=== PATIENT | male | born 1955 | race Caucasian/White ===

== ENCOUNTER 2017-01-25 18:45 | Inpatient (IN) | payer OTHER ==
[~2017-01-25] VITALS: Ht 177.8 cm; Wt 91.9 kg
[~2017-01-25 18:45] MED LIST: ASPI325T39 PO; CIPR-255 PO; GLC500 PO; METO-217 PO; OXYC1TAB3 PO; PRLSR20 PO; SUMA50TA17 PO
[2017-01-25 20:45] LABS: BASO % 0.2 %; BASO ABS # 0.03 K/uL (0-0.2); COMPLETE YES; EOS % 2.3 %; HEMATOCRIT 46.4 % (42-52); IG% 0.3 %; LYMPH % 22.6 %; LYMPH ABS # 3.48 K/uL (1.2-3.4); MEAN CELL VOLUME 86.7 fL (80-100); MEAN CORPUSCULAR HEMOGLOBIN 30.8 pg (25-34); MEAN CORPUSCULAR HGB CONC 35.6 g/dl (32-36); MEAN PLATELET VOLUME 9.7 fL (7.4-10.4); MONO % 8.6 %; PLATELET COUNT 254 K/uL (130-400); RED BLOOD COUNT 5.35 M/uL (4.7-6.1); WHITE BLOOD COUNT 15.39 K/uL (4.8-10.8)
[2017-01-25] MEDS ORDERED: MoRPHine SULFATE 2 MG/ML CARP IV PRN ×2 (20:45→22:15)
[2017-01-25] MEDS ORDERED: NITROGLYCERIN 0.4 MG SL PER TAB CHARGE SL PRN ×2 (20:45→22:00)
--- NOTE | 2017-01-25 20:49 | DIAGNOSTIC IMAGING REPORT ---
CHEST ONE VIEW PORTABLE CLINICAL HISTORY: Atypical chest pain. Shortness of breath. COMPARISON STUDY: 03/08/2015 FINDINGS: The cardiac and mediastinal contours remain stable. There are old bilateral rib deformities. There are increased left perihilar markings which are felt to be related to prior rib trauma. There is no lobar consolidation. There is no failure. There are no pleural effusions.[ IMPRESSION: Old posttraumatic changes. No acute findings. Electronically signed by: Jhon Ortiz M.D. 01/25/2017 8:47 PM Dictated Date/Time: 01/25/2017 8:46 PM
--- NOTE | 2017-01-25 20:52 | EMERGENCY ROOM VISIT NOTE ---
History Report prepared by José Antonio: Eric Trujillo Under the Supervision of: Dr. José Gonzalez D.O. First contact with patient: 20:20 Chief Complaint: CHEST PAIN Stated Complaint: CHEST PAIN, SOB Nursing Triage Summary: Chest pain since 2 pm. Took 2 full strength asprin prior to arrival. History of Present Illness The patient is a 61 year old male who presents to the Emergency Room with complaints of constant chest pains that began today at 1400 while sitting at work, 7 hours prior to arrival. The patient states that the pain was initially localized in his central chest, but is now radiating into his left chest and bilateral shoulders. The patient was not exerting himself when the pain onset. He denies any history of chest pain, and no history of abnormal ECGs. He is also currently complaining of a "pressure" headache. He does note a history of high cholesterol, and notes that he recently has began taking multiple herbal supplements in place of his cholesterol medications. 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 A total of 10 systems reviewed and were otherwise negative. Past Medical & Surgical Medical Problems: (1) Appendicitis (2) Arthritis (3) Benign hypertension (4) Bronchitis (5) Chest pain radiating to arm (6) Chest pain radiating to jaw (7) DEPRESSIVE DISORDER NEC (8) Diabetes mellitus (9) ESOPHAGEAL REFLUX (10) HYPERLIPIDEMIA NEC/NOS (11) HYPERTENSION NOS Surgical Problems: (1) History of appendectomy Family History Diabetes mellitus FH: heart disease Hypertension Social History Smoking Status: Never Smoker Alcohol Use: occasionally Drug Use: none Marital Status: Housing Status: lives with significant other Occupation Status: employed Current/Historical Medications Scheduled Arginine (L-Arginine), 1,000 MG PO TID Carli (Zingiber Officinalis) (Carli Root), 500 MG PO TID Eusebia Root (Eusebia), 500 MG PO TID Metoprolol Succinate (Toprol Xl), 25 MG PO DAILY Misc Natural Products (Ginkgo Biloba), 1 TAB PO TID Omeprazole (Prilosec), 20 MG PO DAILY Scheduled PRN Aspirin (Aspirin Ec), 325-650 MG PO PRN PRN for Headache or Pain Sumatriptan Succinate (Sumatriptan Succinate), 50 MG PO for Migraine Allergies Coded Allergies: Rosuvastatin (Verified Allergy, Unknown, UNKNOWN, 05/11/14) MIKE Inhibitors (Verified Adverse Reaction, Mild, HEADACHES, 05/08/13) Physical Exam Vital Signs Date Time Temp Pulse Resp B/P Pulse Ox O2 Delivery O2 Flow Rate FiO2 01/25/17 21:35 90 18 121/74 95 Room Air 01/25/17 21:28 92 18 131/90 96 Room Air 01/25/17 21:20 90 18 117/78 96 Room Air 01/25/17 21:00 87 18 137/85 96 Room Air 01/25/17 20:30 86 01/25/17 20:25 96 Room Air 01/25/17 20:24 86 18 177/92 95 Room Air 01/25/17 18:52 Room Air 01/25/17 18:51 36.8 92 16 135/88 96 Room Air Physical Exam GENERAL: Patient is well appearing and in no acute distress. HEENT: No acute trauma, normocephalic atraumatic, mucous membranes moist, no nasal congestion, no scleral icterus. NECK: No stridor, no adenopathy, no meningismus, trachea is midline. LUNGS: No dyspnea. Clear to auscultation and equal bilaterally. No wheeze, no rhonchi. CHEST: Chest pain not reproducible with direct palpation. HEART: Regular rate and rhythm. No murmurs, rubs, gallops appreciated. ABDOMEN: Soft, nontender, bowel sounds positive, no masses appreciated, no peritonitis. BACK: No midline tenderness, no CVA tenderness EXTREMITIES: Normal motion all extremities, no cyanosis, no edema. NEUROLOGIC: Alert and oriented, no acute motor or sensory deficits, no focal weakness, cranial nerves grossly intact. SKIN: No rash, no jaundice, no diaphoresis. Medical Decision & Procedures ER Provider Diagnostic Interpretation: Radiology results as stated below per my review and radiologist interpretation: CHEST ONE VIEW PORTABLE CLINICAL HISTORY: Atypical chest pain. Shortness of breath. COMPARISON STUDY: 03/08/2015 FINDINGS: The cardiac and mediastinal contours remain stable. There are old bilateral rib deformities. There are increased left perihilar markings which are felt to be related to prior rib trauma. There is no lobar consolidation. There is no failure. There are no pleural effusions.[ IMPRESSION: Old posttraumatic changes. No acute findings. Electronically signed by: Jhon Ortiz M.D. 01/25/2017 8:47 PM Dictated Date/Time: 01/25/2017 8:46 PM Laboratory Results 01/25/17 20:30 Red Blood Count 5.35, Mean Corpuscular Volume 86.7, Mean Corpuscular Hemoglobin 30.8, Mean Corpuscular Hemoglobin Concent 35.6, Mean Platelet Volume 9.7, Neutrophils (%) (Auto) 66.0, Lymphocytes (%) (Auto) 22.6, Monocytes (%) (Auto) 8.6, Eosinophils (%) (Auto) 2.3, Basophils (%) (Auto) 0.2, Neutrophils # (Auto) 10.14, Lymphocytes # (Auto) 3.48, Monocytes # (Auto) 1.33, Eosinophils # (Auto) 0.36, Basophils # (Auto) 0.03 01/25/17 20:30 Test 01/25/17 20:30 01/25/17 21:33 White Blood Count 15.39 K/uL (4.8-10.8) Red Blood Count 5.35 M/uL (4.7-6.1) Hemoglobin 16.5 g/dL (14.0-18.0) Hematocrit 46.4 % (42-52) Mean Corpuscular Volume 86.7 fL (80-100) Mean Corpuscular Hemoglobin 30.8 pg (25-34) Mean Corpuscular Hemoglobin Concent 35.6 g/dl (32-36) Platelet Count 254 K/uL (130-400) Mean Platelet Volume 9.7 fL (7.4-10.4) Neutrophils (%) (Auto) 66.0 % Lymphocytes (%) (Auto) 22.6 % Monocytes (%) (Auto) 8.6 % Eosinophils (%) (Auto) 2.3 % Basophils (%) (Auto) 0.2 % Neutrophils # (Auto) 10.14 K/uL (1.4-6.5) Lymphocytes # (Auto) 3.48 K/uL (1.2-3.4) Monocytes # (Auto) 1.33 K/uL (0.11-0.59) Eosinophils # (Auto) 0.36 K/uL (0-0.5) Basophils # (Auto) 0.03 K/uL (0-0.2) RDW Standard Deviation 41.3 fL (36.4-46.3) RDW Coefficient of Variation 13.0 % (11.5-14.5) Immature Granulocyte % (Auto) 0.3 % Immature Granulocyte # (Auto) 0.05 K/uL (0.00-0.02) Anion Gap 10.0 mmol/L (3-11) Est Creatinine Clear Calc Drug Dose 82.4 ml/min Estimated GFR () 84.7 Estimated GFR (Non- 73.1 BUN/Creatinine Ratio 17.2 (10-20) Calcium Level 8.8 mg/dl (8.5-10.1) Total Bilirubin 0.5 mg/dl (0.2-1) Direct Bilirubin mg/dl (0-0.2) Aspartate Amino Transf (AST/SGOT) U/L (15-37) Alanine Aminotransferase (ALT/SGPT) 35 U/L (12-78) Alkaline Phosphatase 84 U/L (45-117) Total Protein 7.5 gm/dl (6.4-8.2) Albumin 3.6 gm/dl (3.4-5.0) Lipase 114 U/L (73-393) Thyroid Stimulating Hormone (TSH) 3.280 uIu/ml (0.300-4.500) D-Dimer 410 ug/L FEU (0-500) Laboratory results as reviewed by me. Medications Administered Medications (Trade) Dose Ordered Sig/Jeronimo Route Start Time Stop Time Status Last Admin Dose Admin Nitroglycerin (Nitrostat Tab) 0.4 mg PRN PRN SL 01/25/17 20:45 02/24/17 20:44 01/25/17 21:18 0.4 MG ECG Indication: chest pain Rate (beats per minute): 89 Rhythm: normal sinus Findings: nonspecific-ST abn, RBBB Comparison ECG Date: 03/08/2015 Change: RBBB is new from previous ED Course 2024: The patient was evaluated in room C2. A complete history and physical exam was performed. 2044: Ordered Nitroglycerin 0.4 mg SL, Morphine Sulfate 2 mg IV. 2134: I discussed the case with [place]. Rodrigues [place] [facility] [place] , he will evaluate the patient for further treatment. Medical Decision Differential diagnosis: Etiologies such as cardiac ischemia, aortic dissection, pulmonary embolism, pneumonia, pneumothorax, musculoskeletal, infections, pericarditis, myocarditis , esophageal rupture, gastrointestinal, as well as others were entertained. Patient is a 61-year-old male with a significant past medical history for hypertension, hyperglycemia for which she was placed on metformin. He states he was not diagnosed with diabetes, however he does not routinely taking the metformin. At 2:00 this afternoon was sitting at work he noticed he was having chest pain that are atypical for him, this concerned him for possible heart attack as well as radiation to the left side of his neck and down his left arm. He has a new EKG change and a right bundle branch block. His first set of cardiac enzymes are negative, his chest pain was improved with one sublingual much glycerin. I discussed his case with the hospitalist for further evaluation and management of possible N STEMI and acute coronary syndrome. He' ll be admitted to the hospital for further evaluation and management. Consults Time Called: [phone] Consulting Physician: Dr. Lilia BOLTON Hospitalist Returned Call: [phone] I discussed the case with Dr. Lilia BOLTON Hospitalsushil at this time, he will evaluate the patient for further treatment. Impression Primary Impression: Acute electrocardiogram changes Additional Impression: Atypical chest pain Scribe Attestation The scribe's documentation has been prepared under my direction and personally reviewed by me in its entirety. I confirm that the note above accurately reflects all work, treatment, procedures, and medical decision making performed by me. Departure Information Dispostion Being Evaluated By Hospitalist Referrals Margo Jefferson MD (PCP) Patient Instructions My [facility] Problem Qualifiers
[2017-01-25] MEDS ORDERED: MACA500C2 PO (21:08)
[2017-01-25] MEDS ORDERED: ARGI1TAB PO (21:08)
[2017-01-25] MEDS ORDERED: GING500C2 PO (21:08)
[2017-01-25] MEDS ORDERED: MISCTAB26 PO (21:08)
[2017-01-25 21:26] LABS: ALKALINE PHOSPHATASE 84 U/L (45-117); ALT/SGPT 35 U/L (12-78); BLOOD UREA NITROGEN 19 mg/dl (7-18); BUN/CREATININE RATIO 17.2 (10-20); CALCIUM 8.8 mg/dl (8.5-10.1); CARBON DIOXIDE 23 mmol/L (21-32); CHLORIDE 106 mmol/L (98-107); GLUCOSE 102 mg/dl (70-99); SODIUM 139 mmol/L (136-145)
[2017-01-25] MEDS ORDERED: ZOLPIDEM TARTRATE 5 MG TAB PO PRN (22:00)
[2017-01-25] MEDS ORDERED: MoRPHine SULFATE 4 MG/ML 1 ML CARP\\VIAL IV PRN (22:15)
[2017-01-25] MEDS ORDERED: SUMATRIPTAN SUCCINATE 50 MG TAB PO PRN (22:15)
[2017-01-25] MEDS ORDERED: ONDANSETRON INJ 2 MG/ML 2 ML VIAL IV PRN (22:15)
[2017-01-25] MEDS ORDERED: METOPROLOL SUCC 50MG EXT REL TAB PO STA (22:33)
[2017-01-25 23:59] VITALS: BP 147/89; PULSE 85; TEMP 36.3; O2SAT 96; Ht 177.8 cm; Wt 91.9 kg
[2017-01-26] MEDS: ACETAMINOPHEN 325 MG TAB PO PRN ×2 (00:52→08:22)
[2017-01-26] MEDS ORDERED: NSS + 20MEQ KCL 1000ML 1,000 ML IV SCH (01:00)
[2017-01-26 03:58] VITALS: BP 110/72; PULSE 84; TEMP 36.4; O2SAT 95
[2017-01-26 04:00] VITALS: O2SAT 95
[2017-01-26 04:09] LABS: LYME DISEASE AB IGG NEG (NEG); LYME DISEASE AB IGM NEG (NEG)
--- NOTE | 2017-01-26 04:24 | History and Physical ---
History & Physical Date & Time of Service: Jan 26, 2017 at 04:08 Chief Complaint: Chest Pain Radiating To Arm, Primary Care Physician: Margo Jefferson MD History of Present Illness Source: patient, spouse The patient is a 61-year-old male who presents emergency department with complaint of precordial chest pain that radiates into his neck on either side, his back and his left arm that began at 1400 hrs. today while sitting at work about 7 hours prior to arrival. He has had stress tests in the past which is within normal. He does have history of high cholesterol, high blood pressure, early stages of diabetes, and overweight. He reports that he cut his metoprolol succinate 50 mg dose in half after they began taking herbal supplements in place of his blood pressure and cholesterol medications. Past Medical/Surgical History Medical Problems: (1) Appendicitis Status: Resolved (2) Arthritis Status: Chronic (3) Benign hypertension Status: Chronic (4) Bronchitis Status: Resolved (5) DEPRESSIVE DISORDER NEC Status: Chronic (6) Diabetes mellitus Status: Chronic (7) ESOPHAGEAL REFLUX Status: Chronic (8) HYPERLIPIDEMIA NEC/NOS Status: Chronic (9) HYPERTENSION NOS Status: Chronic Surgical Problems: (1) History of appendectomy Status: Resolved Family History Diabetes mellitus FH: heart disease Hypertension Social History Smoking Status: Former Smoker Alcohol Use: none Drug Use: none Marital Status: Housing status: lives with family Occupational Status: employed Immunizations History of Influenza Vaccine: Yes Influenza Vaccine Date: Sep 14, 2010 History of Tetanus Vaccine?: Unknown History of Pneumococcal: No History of Hepatitis B Vaccine: Unknown Multi-Drug Resistant Organisms History of MDRO: No Allergies Coded Allergies: Rosuvastatin (Verified Allergy, Unknown, UNKNOWN, 05/11/14) MIKE Inhibitors (Verified Adverse Reaction, Mild, HEADACHES, 05/08/13) Home Medications Scheduled Arginine (L-Arginine), 1,000 MG PO TID Carli (Zingiber Officinalis) (Carli Root), 500 MG PO TID Eusebia Root (Eusebia), 500 MG PO TID Metoprolol Succinate (Toprol Xl), 25 MG PO DAILY Misc Natural Products (Ginkgo Biloba), 1 TAB PO TID Omeprazole (Prilosec), 20 MG PO DAILY Scheduled PRN Aspirin (Aspirin Ec), 325-650 MG PO PRN PRN for Headache or Pain Sumatriptan Succinate (Sumatriptan Succinate), 50 MG PO for Migraine Review of Systems The patient denies palpitations, cough, lower extremity swelling, vision change , hearing change, sore throat, fevers, chills, sweats, weight change, fatigue, nausea, vomiting, abdominal pain, pelvic pain, blood in urine or stool, dysuria , urinary frequency or urgency, dizziness, memory loss, rash, abnormal bruising or bleeding, imbalance, focal or generalized weakness, numbness or tingling in arms or legs, arthralgias or myalgias, back or neck pain, night sweats, or allergy symptoms. The review of systems is otherwise negative other than for that already noted above, and at least 10 systems have been reviewed. Physical Exam Vital Signs Date Time Temp Pulse Resp B/P Pulse Ox O2 Delivery O2 Flow Rate FiO2 01/26/17 03:58 36.4 84 18 110/72 95 Room Air 01/25/17 23:59 36.3 85 20 147/89 96 Room Air 01/25/17 23:06 90 18 95 01/25/17 22:56 94 18 121/87 93 Room Air 01/25/17 21:35 90 18 121/74 95 Room Air 01/25/17 21:28 92 18 131/90 96 Room Air 01/25/17 21:20 90 18 117/78 96 Room Air 01/25/17 21:00 87 18 137/85 96 Room Air 01/25/17 20:30 86 01/25/17 20:25 96 Room Air 01/25/17 20:24 86 18 177/92 95 Room Air 01/25/17 18:52 Room Air 01/25/17 18:51 36.8 92 16 135/88 96 Room Air The patient is awake, well-developed and adequately nourished, alert and oriented 3, normocephalic and atraumatic, lying in bed and in no acute distress. HEENT--PERRL, EOMI, mucous membranes and oropharynx moist. Neck--supple, no JVD or bruits, thyroid normal, trachea midline, no adenopathy. Heart--normal S1 and S2, no extra beats, no murmurs, rubs or gallops. Lungs--clear bilaterally with good air movement, no respiratory distress, no accessory muscle use. Abdomen--normal bowel sounds and soft, nontender and nondistended, no hernias or masses, no organomegaly. Extremities--no cyanosis, clubbing or edema. There are good distal pulses b/l. Dermatologic--normal skin turgor, normal color, warm and dry, no abnormal lymph nodes, no rash. Neurologic--cranial nerves II through XII grossly intact, motor and sensory examination normal. Rheumatologic--normal range of motion, nontender, muscles and joints. Psychiatric--normal affect. Diagnostics Laboratory Results Results Past 24 Hours Test 01/25/17 20:30 01/25/17 21:33 01/25/17 22:49 Range/Units White Blood Count 15.39 4.8-10.8 K/uL Red Blood Count 5.35 4.7-6.1 M/uL Hemoglobin 16.5 14.0-18.0 g/dL Hematocrit 46.4 42-52 % Mean Corpuscular Volume 86.7 80-100 fL Mean Corpuscular Hemoglobin 30.8 25-34 pg Mean Corpuscular Hemoglobin Concent 35.6 32-36 g/dl Platelet Count 254 130-400 K/uL Mean Platelet Volume 9.7 7.4-10.4 fL Neutrophils (%) (Auto) 66.0 % Lymphocytes (%) (Auto) 22.6 % Monocytes (%) (Auto) 8.6 % Eosinophils (%) (Auto) 2.3 % Basophils (%) (Auto) 0.2 % Neutrophils # (Auto) 10.14 1.4-6.5 K/uL Lymphocytes # (Auto) 3.48 1.2-3.4 K/uL Monocytes # (Auto) 1.33 0.11-0.59 K/uL Eosinophils # (Auto) 0.36 0-0.5 K/uL Basophils # (Auto) 0.03 0-0.2 K/uL RDW Standard Deviation 41.3 36.4-46.3 fL RDW Coefficient of Variation 13.0 11.5-14.5 % Immature Granulocyte % (Auto) 0.3 % Immature Granulocyte # (Auto) 0.05 0.00-0.02 K/uL Sodium Level 139 136-145 mmol/L Potassium Level 3.5-5.1 mmol/L Chloride Level 106 98-107 mmol/L Carbon Dioxide Level 23 21-32 mmol/L Anion Gap 10.0 3-11 mmol/L Blood Urea Nitrogen 19 7-18 mg/dl Creatinine 1.10 0.60-1.40 mg/dl Est Creatinine Clear Calc Drug Dose 82.4 ml/min Estimated GFR () 84.7 Estimated GFR (Non- 73.1 BUN/Creatinine Ratio 17.2 10-20 Random Glucose 102 70-99 mg/dl Calcium Level 8.8 8.5-10.1 mg/dl Total Bilirubin 0.5 0.2-1 mg/dl Direct Bilirubin 0-0.2 mg/dl Aspartate Amino Transf (AST/SGOT) 15-37 U/L Alanine Aminotransferase (ALT/SGPT) 35 12-78 U/L Alkaline Phosphatase 84 45-117 U/L Troponin I < 0.015 < 0.015 0-0.045 ng/ml Total Protein 7.5 6.4-8.2 gm/dl Albumin 3.6 3.4-5.0 gm/dl Lipase 114 73-393 U/L Thyroid Stimulating Hormone (TSH) 3.280 0.300-4.500 uIu/ml D-Dimer 410 0-500 ug/L FEU Total Creatine Kinase 39-308 U/L Creatine Kinase MB 1.8 0.5-3.6 ng/ml Creatine Kinase MB Ratio 0-3.0 Diagnostic Radiology Patient Name: TUSHAR SINGH Unit Number: [id number] Dictated: 01/25/172045 Transcribed: 01/25/172045 ARG Printed Date/Time: [~ rep prt dt]/[~ rep prt tm] [~ rep ct labl] - [~ rep ct ivnm] [facility] Radiology Department [place], [place] [id number] Dictated: 01/25/172045 Transcribed: 01/25/172045 ARG Printed Date/Time: [~ rep prt dt]/[~ rep prt tm] [~ rep ct labl] - [~ rep ct ivnm] CLINICAL HISTORY: Atypical chest pain. Shortness of breath. COMPARISON STUDY: 03/08/2015 FINDINGS: The cardiac and mediastinal contours remain stable. There are old bilateral rib deformities. There are increased left perihilar markings which are felt to be related to prior rib trauma. There is no lobar consolidation. There is no failure. There are no pleural effusions.[ IMPRESSION: Old posttraumatic changes. No acute findings. Electronically signed by: Jhon Ortiz M.D. 01/25/2017 8:47 PM Dictated Date/Time: 01/25/2017 8:46 PM The status of this report is Signed. Draft = Not yet reviewed or approved by Radiologist. Signed = Reviewed and approved by Radiologist. <AttendingPhy></AttendingPhy> <FamilyPhy>Margo Jefferson MD</FamilyPhy> < PrimaryPhy>Margo Jefferson MD</PrimaryPhy> <UnitNumber>[id number]</UnitNumber > <VisitNumber>[id number]</VisitNumber> <PatientName>TUSHAR SINGH</ PatientName> <DateOfBirth>1955</DateOfBirth> <Location>[facility]</Location> < ServiceDate>01/25/17</ServiceDate> <MNE>ESINDI</MNE> <OrderingPhy>José Gonzalez D.O.</OrderingPhy> <OrderingPhyMNE>f rep ord dr meek</OrderingPhyMNE> < DictatingPhyMNE>f rep dict dr meek</DictatingPhyMNE> <CCListMNE>f rep ct mne</ CCListMNE> <AdmittingPhyMNE>f pt admit dr meek</AdmittingPhyMNE> <AttendingPhyMNE >f pt attend dr meek</AttendingPhyMNE> <ConsultingPhyMNE>f pt consult dr meek</ConsultingPhyMNE> <FamilyPhyMNE>f pt fam dr meek</FamilyPhyMNE> <OtherPhyMNE>f pt other dr meek</OtherPhyMNE> < PrimaryPhyMNE>f pt prim care dr meek</PrimaryPhyMNE> <ReferringPhyMNE>f pt referring dr meek</ReferringPhyMNE> EKG EKG shows normal sinus rhythm at 89 bpm, new right bundle branch block, no acute ST-T changes. Impression Assessment and Plan Precordial chest pain with radiation to neck and left arm--the patient was admitted to the telemetry unit, for serial cardiac enzymes, cardiac rhythm monitoring and a 2-D echocardiogram with Dopplers. Risk factors include: Hypertension, hypercholesterolemia, diabetes mellitus, male over 45. EKG primarily shows a new right bundle branch block. He has had negative stress tests in the past, will likely need a stress test or cardiac catheterization prior to discharge. We'll consult cardiology to see the patient for their opinion. He cut his metoprolol succinate 50 and 25 mg by mouth daily, will return today to 25 mg by mouth twice a day with additional doses tonight, and continue aspirin 81 mg by mouth daily. Diabetes mellitus--is primarily been diet-controlled his recent, has been prescribed metformin in the past. We'll make his diet AHA, diabetic diet. GERD--change omeprazole 20 mg by mouth daily to pantoprazole 40 mg by mouth daily. I did discuss with them the possible diagnosis of esophageal spasm as a cause of his symptoms. Migraine headache--continue sumatriptan 50 mg by mouth when necessary migraine. Level of Care Telemetry Advanced Directives Existing Advance Directive: No Existing Living Will: No Existing Power of Tank Stave Assembler: No Resuscitation Status FULL RESUSCITATION VTE Prophylaxis VTE Risk Assessment Done? Y/N: Yes Risk Level: Moderate Given or contraindicated: SCD's Social Service Consult None Apply
[2017-01-26 05:40] LABS: ESTIMATED AVERAGE GLUCOSE 128 mg/dl; HA1C FLAG Normal (Normal)
[2017-01-26 06:34] LABS: BASO % 0.3 %; BASO ABS # 0.03 K/uL (0-0.2); COMPLETE YES; EOS % 3.8 %; HEMATOCRIT 44.1 % (42-52); IG% 0.2 %; LYMPH % 24.8 %; LYMPH ABS # 2.25 K/uL (1.2-3.4); MEAN CELL VOLUME 87.2 fL (80-100); MEAN CORPUSCULAR HEMOGLOBIN 30.6 pg (25-34); MEAN CORPUSCULAR HGB CONC 35.1 g/dl (32-36); MEAN PLATELET VOLUME 9.6 fL (7.4-10.4); MONO % 10.9 %; PLATELET COUNT 242 K/uL (130-400); RED BLOOD COUNT 5.06 M/uL (4.7-6.1); WHITE BLOOD COUNT 9.06 K/uL (4.8-10.8)
[2017-01-26 07:02] LABS: BLOOD UREA NITROGEN 15 mg/dl (7-18); BUN/CREATININE RATIO 13.4 (10-20); CALCIUM 8.2 mg/dl (8.5-10.1); CARBON DIOXIDE 27 mmol/L (21-32); CHLORIDE 108 mmol/L (98-107); GLUCOSE 107 mg/dl (70-99); POTASSIUM 4.1 mmol/L (3.5-5.1); SODIUM 142 mmol/L (136-145)
[2017-01-26 07:07] LABS: CKMB/CK RATIO 2.4 (0-3.0)
[2017-01-26 08:15] VITALS: BP 126/71; PULSE 80; TEMP 36.6; O2SAT 97
[2017-01-26] MEDS ORDERED: PANTOprazole SOD 40 MG TAB PO SCH (09:00)
[2017-01-26] MEDS ORDERED: ARGININE 1000 MG PO SCH (09:00)
[2017-01-26] MEDS ORDERED: GINGER 500 MG PO SCH (09:00)
[2017-01-26] MEDS ORDERED: NATURAL PRODUCTS PO SCH (09:00)
[2017-01-26] MEDS ORDERED: ASPIRIN 325 MG ECTAB PO SCH (09:00)
[2017-01-26] MEDS ORDERED: MACA ROOT PO SCH (09:00)
[2017-01-26] MEDS ORDERED: METOPROLOL SUCC 50MG EXT REL TAB PO SCH (09:00)
[2017-01-26] MEDS ORDERED: PRLSR20 PO (10:36)
--- NOTE | 2017-01-26 10:46 | Discharge Instructions ---
Discharge Instructions Date of Service Jan 26, 2017. Admission Reason for Admission: Chest Pain Radiating To Arm, Discharge Discharge Diagnosis / Problem: chest pain, esophagitis Discharge Goals Goal(s): Diagnostic testing Activity Recommendations Activity Limitations: resume your previous activity . Instructions / Follow-Up Instructions / Follow-Up You were treated in the hospital for chest pain. A stress test was performed and no abnormalities were found. It is possible that you could have esophagitis, which can cause significant discomfort The following changes/additions have been made to your medication list: -Increased Prilosec to 20 mg twice daily for 2 weeks Please follow up with your primary care physician within 1 week Please discuss with your and family doctor about starting a cholesterol medication to minimize your risk for cardiac disease Call your doctor or return to the emergency department if you have any of the following symptoms: -Fever of 101F or greater -Persistent vomiting - Persistent diarrhea -Lethargy -new or worsening Chest pain -Shortness of breath -severe dizziness -weakness on one side of your body Current Hospital Diet Patient's current hospital diet: AHA Diet (Heart Healthy), Diabetes Type 2 Diet Discharge Diet Recommended Diet: AHA Diet (Heart Healthy), Diabetes Type 2 Diet Procedures Procedures Performed: stress echo-normal Pending Studies Studies pending at discharge: no Laboratory Results Hemoglobin A1c Test 01/25/17 20:30 Range/Units Estimated Average Glucose 128 mg/dl Hemoglobin A1c 6.1 H 4.5-5.6 % Medical Emergencies . Who to Call and When: Medical Emergencies: If at any time you feel your situation is an emergency, please call 911 immediately. . Non-Emergent Contact Non-Emergency issues call your: Primary Care Provider . . "Provider Documentation" section prepared by Kelsie Jack. VTE Core Measure Inpt VTE Proph given/why not?: SCD's
--- NOTE | 2017-01-26 10:55 | Discharge Summary ---
Discharge Summary Date of Service Jan 26, 2017. Discharge Summary Admission Date: Jan 25, 2017 at 21:58 Discharge Date: Jan 26, 2017 Discharge Disposition: Home Principal Diagnosis: chest pain, new RBBB, esophagitis Problems/Secondary Diagnoses: DM HTN HLD Immunizations: Have You Had Influenza Vaccine: Yes Influenza Vaccine Date: Sep 14, 2010 History of Tetanus Vaccine?: Unknown History of Pneumococcal: No History of Hepatitis B Vaccine: Unknown Procedures: Stress echo-normal Consultations: cardiology Medication Reconciliation Changed Medications: Omeprazole (Prilosec) 20 Mg Capcr 20 MG PO BID for 30 Days, #60 TABS 0 Refills (Changed from: DAILY) Continued Medications: Arginine (L-Arginine) 1,000 Mg Tab 1000 MG PO TID Aspirin (Aspirin Ec) 325 Mg Tab 325-650 MG PO PRN PRN for Headache or Pain Carli (Zingiber Officinalis) (Carli Root) 500 Mg Cap 500 MG PO TID Eusebia Root (Eusebia) 500 Mg Cap 500 MG PO TID Metoprolol Succinate (Toprol Xl) 50 Mg Tabcr 25 MG PO DAILY, #30 TAB Misc Natural Products (Ginkgo Biloba) 1 Tab Tab 1 TAB PO TID Sumatriptan Succinate (Sumatriptan Succinate) 50 Mg Tab 50 MG PO PRN for Migraine may repeat every 2 hrs. max dose 200 mg /day Referrals At Discharge Follow up Referrals: Family Practice Referral - Within 1 Week with Margo Jefferson MD Discharge Exam Denies Chest pain this morning. No chest pressure or shortness of breath. Denies any dizziness, heart palpitations, sweating Review of Systems: Constitutional: No fever Respiratory: No cough, No shortness of breath Cardiovascular: No chest pain Abdomen: No nausea Physical Exam: General Appearance: no apparent distress Neck: no JVD Respiratory/Chest: lungs clear Cardiovascular: regular rate, rhythm Abdomen / GI: normal bowel sounds, non tender, soft Extremities: no calf tenderness, no pedal edema Neurologic/Psychiatric: no motor/sensory deficits, normal reflexes Skin: normal color Hospital Course -This patient is a 61-year-old male presented to the emergency department complaining of chest pain that started at 2 PM the previous day. The pain was constant. He describes it as a pressure. In the emergency department, the patient received nitroglycerin which seemed to help with the pain. chest pain -observed in telemetry -Cardiac enzymes 3 are negative -EKG shows a new right bundle branch block -Cardiology consulted -Stress echo performed-normal -Chest pain is thought to be GI related. The patient remembers feeling like his pills got stuck a few days ago. It is possible that the patient has pill esophagitis ? Esophagitis -Increase Prilosec to 20 mg po BID -Follow up with PCP in one week to assess improvement DM -Hemoglobin A1c mildly elevated at 6.1 -Continue diabetic diet at home Hypertension -Continue metoprolol XL 25 mg daily Hyperlipidemia -The patient is against taking statins. It was encouraged that he start a statin given his risk factors for cardiac disease. He will discuss with his and his primary care physician DVT prophylaxis SCDs CODE STATUS -LEVEL I FULL CODE DISPO -d/c home self care Total Time Spent: Greater than 30 minutes This includes examination of the patient, discharge planning, medication reconciliation, and communication with other providers. Discharge Instructions Please refer to the electronic Patient Visit Report (Discharge Instructions) for additional information. Follow-Up PCP 1 week Additional Copies To Margo Jefferson MD
[2017-01-26 11:04] VITALS: BP 126/71; PULSE 80; TEMP 36.6; O2SAT 97
--- NOTE | 2017-01-26 11:33 | CARDIOLOGY CONSULTATION ---
DATE OF CONSULTATION: 01/26/2017 DATE OF CONSULTATION: 01/26/2017. CHIEF COMPLAINT: Chest pain. HISTORY OF PRESENT ILLNESS: Mr. Mahad Murcia is a 61-year-old gentleman without a known history of cardiac disease who experienced the acute onset of substernal chest discomfort while at work yesterday. The patient stated that the pain was moderate in intensity and located primarily in the substernal area. It did not occur with any form of exertion and was brought on at rest. There was no radiation to the arms, neck or back at that time. There was a pleuritic component and the patient was quite clear that the symptoms worsened with deep inspiration. He did not have any associated dyspnea, although he had some splinting as a result of the pleuritic discomfort. He did not have any associated diaphoresis or nausea. The symptoms waxed and waned in severity for several hours. The patient did go home and rest. He did administer some aspirin at home without significant relief. Based on the persistent nature of his symptoms, the patient sought medical attention at [facility]. In the hospital the patient was noted to have a normal EKG with interim development of a right bundle branch block. There were no acute ST or T-wave changes. The patient was administered sublingual nitroglycerin with some improvement in his chest discomfort; however, this did not resolve the symptoms in their entirety. He was able to sleep over the course of the evening and this morning he does not describe any residual symptoms. He has no pleuritic component to his chest pain currently. In general the patient is an active individual, was able to perform routine activities without limitation or exertional symptoms. His job is fairly sedentary, but he does have a large property and recently he has been active on his property. He denies exertional dyspnea or chest discomfort. He has no dizziness, lightheadedness. He has not experienced a syncopal episode. Denies orthopnea or paroxysmal nocturnal dyspnea. He has not any swelling in his lower extremities. He has not experienced any significant weight gain. The patient has had some pains in the past which were also atypical. These pains prompted evaluation with stress testing previously. Results of those stress tests were normal. PAST MEDICAL HISTORY: Significant for: 1. Diverticulitis. 2. Hyperlipidemia with dysmetabolic syndrome. 3. Hypertension. 4. Erectile dysfunction. 5. History of migraine. 6. History of bronchitis. 7. Diabetes mellitus. 8. History of gastroesophageal reflux disease. PAST SURGICAL HISTORY: Appendectomy. FAMILY HISTORY: Significant for diabetes and hypercholesterolemia as well as hypertension, does not appear to be history of premature coronary disease, however. 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 He has a remote history of tobacco abuse, currently nonsmoker. He denies significant alcohol use. OUTPATIENT MEDICATIONS: Include metoprolol, omeprazole, aspirin on a p.r.n. basis, Sumatriptan on a p.r.n. basis. Of note, the patient had been prescribed both atorvastatin and fenofibrate however he did continue these at the request of his . ALLERGIES: ROSUVASTATIN, MIKE INHIBITORS WHICH CAUSE HEADACHES. REVIEW OF SYSTEMS: A complete 10-system review of system was performed. The pertinent positives are noted in history of present illness. The patient reported a mild headache last evening. He also recently had some difficulty with swallowing, feeling as if food got stuck in the distal esophagus. This is currently improved. He has not experienced any recent constitutional symptoms such as fevers or chills. He has not experienced any weight gain. He denies lower extremity edema. He did have a tick bite on his left flank recently. The tip was removed by his and oregano oil. PHYSICAL EXAMINATION: GENERAL: The patient denies to have any acute distress. He is a pleasant individual who is alert and oriented. His mood and affect appeared normal. He answered all questions appropriately. VITAL SIGNS: Include blood pressure of 126/71 with a pulse of 80. HEAD, EYES, EARS, NOSE, AND THROAT: Sclerae are anicteric. Pupils are equal, reactive to light and accommodation. Extraocular movements were intact. Palpation in the submandibular region did not reveal any significant lymphadenopathy. Carotids were palpable bilaterally. I did not appreciate any bruits on auscultation. There is no evidence of jugular venous distention. Thyroid is not enlarged. Auscultation both lung sutherland are clear. There were no rales, wheezes, or rhonchi. He had good respiratory effort without use of accessory muscles. Cardiac examination revealed him to be in regular rate and rhythm. S1 and S2 were normal. There were no murmurs appreciated on auscultation. PMI was not markedly displaced on palpation. ABDOMEN: Soft and nontender. Evaluation of both wrists revealed radial pulses are equal in intensity. There was no evidence of cyanosis or clubbing. Evaluation over the left flank did not reveal any notable rashes. No rashes on the remainder of his body. He did not have any lower extremity edema. LABORATORY DATA: Laboratory studies obtained since admission include a white cell count of 9, hemoglobin 15, platelet count 242. Sodium is 142, potassium is 4.1, creatinine was 1.1, BUN was 15. Serial cardiac biomarkers were all less than detectable limit. 12-lead EKG was obtained at the time of admission. This revealed the patient to be in a sinus rhythm with a right bundle branch block. There were no notable ST or T-wave changes. I did review old EKGs including the source images from his medical record. Right bundle branch block is new. The patient did undergo exercise echocardiography in 2014. This was a normal exercise test with good exercise tolerance, the patient having exercised for 13 minutes. No evidence of inducible ischemia. Echocardiography was otherwise unremarkable. ASSESSMENT AND PLAN: 1. Noncardiac chest pain. The character of the patient's symptoms are certainly concerning for cardiac ischemia; however, the prolonged nature and absence of elevation in his cardiac biomarkers would suggest that this is not cardiac in nature. He does have a subtle EKG change, specifically a right bundle branch block. This is less specific for development of cardiac disease. He is otherwise asymptomatic and has not experienced exertional chest pain or other symptoms consistent with coronary insufficiency. Additionally, he has used agents for migraine therapy without notable chest pain or adverse events. The patient does have multiple risk factors for the development of coronary disease. Given his new EKG abnormality and risk factors, would seem reasonable to repeat risk stratification with exercise echocardiography. I discussed this with the patient and will perform this later today. 2. Hypercholesterolemia. The patient discontinued his cholesterol medicines on the advice of his who is concerned about side effect. He did not report any notable side effects from these medications. Given the marked elevation in his cholesterol seen on outpatient testing and his additional risk factors, he would be advised to reinstitute therapy with high dose atorvastatin. 3. The patient has multiple risk factors for coronary disease and should consider reinstituting low dose daily aspirin therapy. MTDD
--- NOTE | 2017-01-26 13:01 | EXERCISE STRESS ECHO ---
*NOTICE TO RECEIVING REPUBLICAN AGENCY This information is strictly Confidential and protected under [place] law. [place] law prohibits you from making any further disclosure of this information unless further disclosure is expressly permitted by the written consent of the person to whom it pertains or is authorized by law. A general authorization for the release of medical or other information is not sufficient for this purpose. Hospital accepts no responsibility if the information is made available to any other person, INCLUDING THE PATIENT. Interpretation Summary * Name: TUSHAR SINGH Study Date: 01/26/2017 09:48 AM BP: 127/85 mmHg * Patient Location: C.2T\S\E215\S\1 HR: 76 * : 1955 (M/d/yyyy) Gender: Male Height: 70 in * Age: 61 yrs Ethnicity: [place] Weight: 202 lb * Ordering Physician: Austin Holman * Referring Physician: AUSTIN HOLMAN MD * Performed By: Natali Barnes RDCS * * Reason For Study: CHEST PAIN * BSA: 2.1 m2 * History: CHEST PAIN * -- Conclusions -- * Left ventricular systolic function is normal. * Grade I diastolic dysfunction, (abnormal relaxation pattern). * Compared to a study from 02/2015, there is evidence of impaired relaxation. Procedure Details * ECHOEX, CPT #13942 Left Ventricular Findings with Stress * Normal exercise echocardiogram without symptoms or evidence of inducible ischemia Left Ventricle * There is normal left ventricular wall thickness. * Ejection Fraction = 60-65%. * Left ventricular systolic function is normal. * The left ventricular wall motion is normal. Right Ventricle * The right ventricle is normal in size and function. Atria * The left atrial size is normal. * Right atrial size is normal. Mitral Valve * The mitral valve leaflets appear normal. There is no evidence of stenosis, fluttering, or prolapse. * There is no mitral regurgitation noted. Tricuspid Valve * The tricuspid valve is not well visualized, but is grossly normal. * There is mild tricuspid regurgitation. * Right ventricular systolic pressure is normal. Aortic Valve * The aortic valve is trileaflet. * No hemodynamically significant valvular aortic stenosis. * There is no significant aortic regurgitation. Great Vessels * The aortic root is normal size. * The aortic root and proximal ascending aorta are normal sized. Pericardium * There is no pericardial effusion. Stress Parameters * The stress portion of this study was personally supervised by the undersigned interpreting physician. * Rest heart rate was '76' BPM. * Rest blood pressure was '127/85' * Maximum heart rate achieved was 141 bpm. * Maximum heart rate was 87 % of maximum age-predicted heart rate. * Maximum blood pressure was '173/81' * Total exercise time was '9:50' * Maximum exercise MET level achieved was '11.40' METS * Maximum treadmill speed was '4.20' miles per hour. * Maximum treadmill elevation was '16.00'% grade. * Exercise was terminated due to 'ACHIEVING TARGET HR' Left Ventricular Findings with Stress * The study was diagnostic quality. * Patient exercised for 9:50 on a standard Abdirahman protocol. Baseline EKG demonstrated sinus rhythm with RBBB Slight (<1mm) ST depression in 1 lead at peak exertion Echo images demonstrate normal wall motion with normal augmentation and no ischemic changes. No symptoms [place] treadmill score 5 (low risk) Left Ventricular Diastolic Function * Grade I diastolic dysfunction, (abnormal relaxation pattern). MMode 2D Measurements and Calculations IVSd 1.0 cm IVSs 1.3 cm LVIDd 3.9 cm LVIDs 2.6 cm LVPWd 1.3 cm LVPWs 1.4 cm IVS/LVPW 0.82 FS 33.6 % EDV(Teich) 64.9 ml ESV(Teich) 23.9 ml EF(Teich) 63.1 % EDV(cubed) 58.1 ml ESV(cubed) 17.0 ml EF(cubed) 70.8 % % IVS thick 30.4 % % LVPW thick 9.3 % LV mass(C)d 146.7 grams LV mass(C)dI 70.0 grams/m\S\2 LV mass(C)s 109.5 grams LV mass(C)sI 52.2 grams/m\S\2 SV(Teich) 40.9 ml SI(Teich) 19.5 ml/m\S\2 SV(cubed) 41.1 ml SI(cubed) 19.6 ml/m\S\2 Ao root diam 3.4 cm Ao root area 9.1 cm\S\2 LA dimension 3.1 cm LA/Ao 0.92 LVAd ap4 25.3 cm\S\2 LVLd ap4 8.6 cm EDV(MOD-sp4) 61.6 ml EDV(sp4-el) 63.3 ml LVAs ap4 14.8 cm\S\2 LVLs ap4 7.5 cm ESV(MOD-sp4) 26.2 ml ESV(sp4-el) 24.8 ml EF(MOD-sp4) 57.5 % EF(sp4-el) 60.9 % LVAd ap2 24.2 cm\S\2 LVLd ap2 8.4 cm EDV(MOD-sp2) 58.1 ml EDV(sp2-el) 59.1 ml LVAs ap2 12.7 cm\S\2 LVLs ap2 7.6 cm ESV(MOD-sp2) 18.2 ml ESV(sp2-el) 18.0 ml EF(MOD-sp2) 68.7 % EF(sp2-el) 69.5 % LVLd %diff -1.99 % EDV(MOD-bp) 60.3 ml LVLs %diff 1.1 % ESV(MOD-bp) 21.8 ml EF(MOD-bp) 63.9 % SV(MOD-sp4) 35.4 ml SI(MOD-sp4) 16.9 ml/m\S\2 SV(MOD-sp2) 39.9 ml SI(MOD-sp2) 19.0 ml/m\S\2 SV(MOD-bp) 38.5 ml SI(MOD-bp) 18.4 ml/m\S\2 SV(sp4-el) 38.6 ml SI(sp4-el) 18.4 ml/m\S\2 SV(sp2-el) 41.0 ml SI(sp2-el) 19.6 ml/m\S\2 Doppler Measurements and Calculations MV E max lenka 61.0 cm/sec MV A max lenka 84.3 cm/sec MV E/A 0.72 MV dec time 0.32 sec Ao V2 max 101.8 cm/sec Ao max PG 4.1 mmHg Ao max PG (full) -0.47 mmHg LV V1 max PG 4.6 mmHg LV V1 max 107.4 cm/sec TR max lenka 213.7 cm/sec
== END 2017-01-26 12:07 | disposition home or self-care (01) | DRG 310 ==
LOC: ENRESERVDT → ENRESERVTM → C.EDB 18:46 → C.2T 21:58
PROVIDERS: ADMIT Hospitalist; ATTEND Hospitalist
DX: I45.10 Unspecified right bundle-branch block (principal); N52.9 Male erectile dysfunction, unspecified; E78.00 Pure hypercholesterolemia, unspecified; E11.9 Type 2 diabetes mellitus without complications; M19.90 Unspecified osteoarthritis, unspecified site; F32.9 Major depressive disorder, single episode, unspecified; E78.5 Hyperlipidemia, unspecified; I10 Essential (primary) hypertension; Z90.49 Acquired absence of other specified parts of digestive tract; Z83.3 Family history of diabetes mellitus; Z82.49 Family history of ischemic heart disease and other diseases of the circulatory system; Z87.891 Personal history of nicotine dependence; Z88.8 Allergy status to other drugs, medicaments and biological substances; Z79.899 Other long term (current) drug therapy; G43.909 Migraine, unspecified, not intractable, without status migrainosus; Z87.19 Personal history of other diseases of the digestive system; K21.0 Gastro-esophageal reflux disease with esophagitis

== ENCOUNTER → 2017-08-14 | Outpatient (CLI) | payer OTHER ==
[~2017-08-14] MED LIST changes: +ARGI1TAB PO; -CIPR-255 PO; +GING500C2 PO; -GLC500 PO; +MACA500C2 PO; +MISCTAB26 PO; -OXYC1TAB3 PO
[2017-08-14 12:14] LABS: ALT/SGPT 25 U/L (12-78); AST/SGOT 11 U/L (15-37); BLOOD UREA NITROGEN 13 mg/dl (7-18); CALCIUM 9.7 mg/dl (8.5-10.1); CARBON DIOXIDE 28 mmol/L (21-32); CHLORIDE 105 mmol/L (98-107); CHOLESTEROL 311 mg/dl (0-200); GLUCOSE 103 mg/dl (70-99); POTASSIUM 4.5 mmol/L (3.5-5.1); SODIUM 140 mmol/L (136-145)
[2017-08-14 12:16] LABS: ALB/GLOB RATIO 0.9 (0.9-2); ALKALINE PHOSPHATASE 89 U/L (45-117); CHOLESTEROL/HDL RATIO 7.6; HDL CHOLESTEROL 41 mg/dl; LDL CHOLESTEROL CALCULATED 229 mg/dl; TRIGLYCERIDES 204 mg/dl (0-150); VERY LOW DENSITY LIPOPROT CALC 41 mg/dl
[2017-08-14 12:23] LABS: ESTIMATED AVERAGE GLUCOSE 134 mg/dl; HA1C FLAG Normal (Normal)
== END | disposition home or self-care (01) ==
LOC: C.LABPBG 09:13
PROVIDERS: ATTEND Family Medicine
DX: E78.00 Pure hypercholesterolemia, unspecified (principal); R73.03 Prediabetes